=== PATIENT | female | born 1955 | race Caucasian/White ===

== ENCOUNTER 2018-08-01 10:54 | Outpatient (CLI) | payer BC ==
[2018-08-01 11:48] LABS: eGFR (Non-African) > 60
== END 2018-08-01 10:56 ==
LOC: LAB 10:54
PROVIDERS: ATTEND Family Medicine
DX: Z00.00 Encounter for general adult medical examination without abnormal findings (principal); Z13.6 Encounter for screening for cardiovascular disorders
CPT/HCPCS: 36415; 80053; 80061